=== PATIENT | female | born 1975 | race Asian ===

== ENCOUNTER → 2018-02-13 09:48 | Day surgery (SDC) | payer OTHER ==
[~2018-02-13 09:48] MED LIST: Buffered Lidocaine 0.9% SYRIN* 5 ML/SYR SYRINGE INTRADERM ONE; DOXYcycline IV* 200 MG in NS 0.9% 250 ML* 250 ML IVPB ONE; Dexamethasone IV* 4 MG/ML 1 ML (4 MG) IV SLOW PU ONE; Dexamethasone IV* 4 MG/ML 1 ML (4 MG) ONE; DiMENhydriNATE IV* 50 MG/ML VIAL IV PUSH PRN; EPHEDrine (Pressors)* 50 MG/ML VIAL ONE; Famotidine IV* 10 MG/ML 2 ML (20 mg) IV ONE; Famotidine IV* 10 MG/ML 2 ML (20 mg) ONE; HYDROcodone/ACETAMIN 5-325 MG* 1 TAB PO PRN; Ketorolac INJ* 30 MG/ML 1 ML VIAL ONE; Lactated Ringers 1000 ML Bag* 1,000 ML IV SCH; Lidocaine 2% PF * 5 ML VIAL ONE; Midazolam* 1 MG/ML 5 ML VIAL (5 MG) ONE; Naloxone* 0.4 MG/ML 1 ML VIAL IV PRN; Ondansetron INJ* 2 MG/ML VIAL ONE; Propofol* 10 MG/ML 20 ML BTL ONE; Propofol* 500 MG/50 ML BTL ONE; fentaNYL* 50 MCG/ML 2 ML VIAL (100 MCG VIAL) IV PRN; fentaNYL* 50 MCG/ML 2 ML VIAL (100 MCG VIAL) ONE; oxyCODONE/Acetamin 5/325 MG* TAB PO PRN
[2018-02-13 12:34] VITALS: BP 110/60
--- NOTE | 2018-03-04 23:10 | OP ---
DATE OF OPERATION: 02/13/18 - [facility] DATE OF : 75 SURGEON: Milton Jacobsen MD ANESTHESIOLOGIST: ANESTHESIA: General. PRE-OP DIAGNOSIS: Missed at 7 weeks. POST-OP DIAGNOSIS: Missed at 7 weeks. OPERATIVE PROCEDURE: Suction dilation and curettage. ESTIMATED BLOOD LOSS: 250 cc. URINE OUTPUT: 300 cc. IV FLUIDS: 800 cc lactated Ringer's. MATERIALS TO LAB: Products of conception. INDICATIONS: The patient is a 42-year-old gravid 3, para 0 who presented to the office and was noted to have non-viable first trimester twin . Of note, the patient had had two prior first trimester miscarriages earlier this year. The patient desired to proceed with a suction D and C as she was going to be busy with travel in the near future. She was extensively counseled and consent was signed. FINDINGS: Uterus with moderate amount of tissue as expected. COMPLICATIONS: None. DESCRIPTION OF PROCEDURE: The risks, benefits, and alternatives were described to the patient and informed consent was obtained. The patient was taken to the operating room with IV running, where a general anesthesia was induced and found to be adequate. The patient was prepped and draped in the normal sterile fashion in the high lithotomy position in [facility] [place]. A time-out was performed. The bladder was emptied. A bivalve speculum was placed in the vagina and a single tooth tenaculum was placed on the anterior cervix. The cervix was then gently dilated using Andre dilators and then with Hegar dilators until a size 10 suction curette could fit through the cervix. At that time, a size 10 curved suction curette was attached to suction and placed through the cervix and into uterine cavity without difficulty. Suction was activated and the uterine contents were evacuated. Moderate amount of blood and fluid and tissue were obtained. About 3 passes were used at which point there did not appear to be any additional tissue present. The suction curette was removed and a medium Banjo curette was used to gently palpate the uterine cavity. Good cry was noted in all four quadrants and there did not appear to be any additional tissue present at that time. Bleeding from the cervix was minimal at that time. The tenaculum was removed from the cervix and the speculum was removed. Bimanual massage was then performed and there was good firmness of the uterus. The patient was then returned to the supine position and allowed to awaken. The patient tolerated the procedure well. Sponge, lap, and needle counts were correct x2. [id number] #: [id number] [facility]
== END | disposition home or self-care (01) ==
LOC: OR 09:48
PROVIDERS: ATTEND Obstetrics & Gynecology
DX: O02.1 Missed abortion (principal); Z87.891 Personal history of nicotine dependence
CPT/HCPCS: 81229; 88342; J1100; J1885; J2250; J2405; J2704; J3010